=== PATIENT | female | born 1985 | race Caucasian/White ===

== ENCOUNTER 2016-04-16 17:22 | Emergency (ER) | payer OTHER ==
--- NOTE | 2016-04-16 21:01 | ED ---
General Adult HPI - General Chief complaint: ENT Stated complaint: Ear/jaw pain Time Seen by Provider: 04/16/16 19:16 Source: patient, RN notes reviewed Mode of arrival: ambulatory Limitations: no limitations - History of Present Illness Initial comments: This is a 30-year-old female who presents with bilateral otalgia since January. Patient states she had a perforation of her left side tympanic membrane in January and has since had problems. Patient states she is currently on a course of ciprofloxacin for ear pain. Patient states she was put on this antibiotic by her primary care physician. Patient states she has been on this antibiotic for 7 days and has 3 days left with no improvement in symptoms. Patient denies any drainage from the ear. Patient denies any sore throat, cough , fever but states she has noticed some chills. Patient states she has chronic congestion from ALLERGIES. Patient denies any shortness breath, chest pain, abdominal pain, nausea/vomiting/diarrhea, back pain, numbness, tingling, hematuria, headache, or visual changes, or any other complaints. - Related Data Home Medications Medication Instructions Recorded Confirmed Escitalopram [Lexapro] 1 tab PO DAILY 04/16/16 04/16/16 Previous Rx's Medication Instructions Recorded Amoxic-Pot Clav 875-125Mg 1 tab PO Q12HR 7 Days 04/16/16 [Augmentin 875-125] Ofloxacin [Floxin 0.3% Otic Soln] 10 drops LEFT EAR BID 7 Days 04/16/16 Allergies Allergy/AdvReac Type Severity Reaction Status Date / Time aspirin Allergy Unknown Verified 04/16/16 17:47 Review of Systems ROS Statement: Those systems with pertinent positive or pertinent negative responses have been documented in the HPI. ROS Other: All systems not noted in ROS Statement are negative. Past Medical History Past Medical History: No Reported History History of Any Multi-Drug Resistant Organisms: None Reported Additional Past Surgical History / Comment(s): heart valve ablation (2006) Past Psychological History: Depression Smoking Status: Current every day smoker Past Alcohol Use History: None Reported Past Drug Use History: None Reported General Exam - General Exam Comments Initial Comments: General: The patient is awake and alert, in no distress, and does not appear acutely ill. Eye: Pupils are equal, round and reactive to light, extra-ocular movements are intact. No nystagmus. There is normal conjunctiva bilaterally. No signs of icterus. Ears: Right tympanic membrane with fluid present, left tympanic membrane with hard wax that was removed revealing a non-erythematous tympanic membrane. Perforation not visualized. External ear canals with mild abrasion and irritation bilaterally. Nose: Nasal turbinates mildly erythematous. Mouth and throat: There are moist mucous membranes and no oral lesions. Neck: Anterior cervical chain lymphadenopathy present. The neck is supple, there is no JVD. Cardiovascular: There is a regular rate and rhythm. No murmur, rub or gallop is appreciated. Respiratory: Lungs are clear to auscultation, respirations are non-labored, breath sounds are equal. No wheezes, stridor, rales, or rhonchi. Musculoskeletal: Normal ROM, no tenderness. Strength 5/5. Sensation intact. Radial pulses equal bilaterally 2+. Neurological: A&O x 3. CN II-XII intact, There are no obvious motor or sensory deficits. Coordination appears grossly intact. Speech is normal. Skin: Skin is warm and dry and no rashes or lesions are noted. Psychiatric: Cooperative, appropriate mood & affect, normal judgment. Limitations: no limitations Course Vital Signs 04/16/16 04/16/16 17:45 21:11 Temperature 98.2 F 98.7 F Pulse Rate 82 72 Respiratory 20 16 Rate Blood Pressure 134/61 135/68 O2 Sat by Pulse 99 100 Oximetry Medical Decision Making - Medical Decision Making This is a 30-year-old female presents with bilateral ear pain since January. Patient is currently on a course of ciprofloxacin. On physical exam Right tympanic membrane with fluid present, left tympanic membrane with hard wax that was removed revealing a non-erythematous tympanic membrane. Perforation not visualized. External ear canals with mild abrasion and irritation bilaterally. I discussed with the patient that she'll be switched to Augmentin and also given antibiotic eardrops. Discussed that patient should follow-up with ENT. Discussed [id number] Tylenol as needed for any pain. Patient is unable to take Motrin due to her von Willebrand's disease. Discussed return parameters. Discussed that patient should follow up with PCP in one to 2 days or return to the [facility] for any worsening symptoms or for any further concerns. Patient was receptive to this plan and patient will be discharged home. I discussed his case with attending physician Dr. House who agrees the plan as stated above. Disposition Clinical Impression: Otitis media Disposition: HOME SELF-CARE Condition: Good Instructions: Earache (ED) Additional Instructions: Please finish entire course of antibiotics and stop her current antibiotic course of ciprofloxacin. Please use antibiotic eardrops as prescribed. Please follow-up with ENT doctor as soon as possible. Please use [id number] Tylenol as needed for any pain. Please follow-up with family doctor in the next 2 days of symptoms have not improved. Please return to emergency room if the symptoms increase or worsen or for any other concerns. Prescriptions: Amoxic-Pot Clav 875-125Mg [Augmentin 875-125] 1 tab PO Q12HR 7 Days Ofloxacin [Floxin 0.3% Otic Soln] 10 drops LEFT EAR BID 7 Days Referrals: Tone Friedman MD [Primary Care Provider] - 1-2 days Sang Cope MD [STAFF PHYSICIAN] - 1-2 days Time of Disposition: 21:05
[2016-04-16 21:13] VITALS: BP 135/68; PULSE 72; RESP 16; TEMP 98.7
== END 2016-04-16 21:14 | disposition home or self-care (01) ==
LOC: EC 17:22
DX: H66.91 Otitis media, unspecified, right ear (principal); F32.9 Major depressive disorder, single episode, unspecified; F17.200 Nicotine dependence, unspecified, uncomplicated; Z88.6 Allergy status to analgesic agent; Z79.899 Other long term (current) drug therapy
CPT/HCPCS: 99283